=== PATIENT | female | born 1935 | race Caucasian/White ===

== ENCOUNTER 2018-06-19 09:02 | Emergency (ER) | payer OTHER ==
--- NOTE | 2018-06-19 09:31 | PDOC ---
History of Present Illness - General Chief Complaint: Injury Stated Complaint: FALL Time Seen by Provider: 06/19/18 09:31 History Source: Patient Exam Limitations: No Limitations - History of Present Illness Initial Comments: 06/19/18 09:36 Ms Casper is a coy 89 yo F resident of [address] [place] [address], who presents emergency department via EMS after a fall. Patient has a history of advanced dementia and is largely unable to provide historical information. Call placed to group home facility 06/19/18 09:37 06/19/18 09:45 Per Nurse Korin, pt exited her room with a tissue on her head stating that she did something Staff notice blood and went to her room to investigate Staff member surmises that the patient may have hit her head on the edge of her night table Unable to comment on LOC Pt is demented, not necessarily amnestic Past History - Past Medical History Allergies/Adverse Reactions: Allergies Allergy/AdvReac Type Severity Reaction Status Date / Time No Known Allergies Allergy Verified 06/19/18 09:23 Home Medications: Ambulatory Orders Atorvastatin Ca [Lipitor] 20 mg PO HS 06/19/18 Chlorthalidone 30 mg PO DAILY 06/19/18 Ergocalciferol [Vitamin D2] 50,000 unit PO Q7D@1000 06/19/18 Levothyroxine Sodium [Levo-T] 50 mcg PO DAILY 06/19/18 Mirtazapine 22.5 mg PO BID 06/19/18 Potassium Chloride [Potassium Chloride Oral Liquid] 20 meq PO ONCE 06/19/18 Sertraline HCl 100 mg PO DAILY 06/19/18 COPD: No Dementia: Yes Hypercholesterolemia: Yes Psychiatric Problems: Yes (DEPRESSION) Thyroid Disease: Yes (HYPO) - Suicide/Smoking/Psychosocial Hx Smoking History: Never smoked Review of Systems - Review of Systems Able to Perform ROS?: Yes (ROS limited by dementia) Constitutional: No: Fever, Loss of Appetite HEENTM: No: Blurred Vision, Nose Bleeding Respiratory: No: Cough, Shortness of Breath, Wheezing Cardiac (ROS): No: Chest Pain ABD/GI: No: Diarrhea, Vomiting, Abdominal cramping : No: Burning, Flank Pain Musculoskeletal: Yes: Joint Stiffness. No: Back Pain, Neck Pain Neurological: No: Headache, Numbness, Weakness All Other Systems: Reviewed and Negative *Physical Exam - Vital Signs Last Vital Signs Temp Pulse Resp BP Pulse Ox 97.9 F 67 16 136/89 97 06/19/18 09:19 06/19/18 09:19 06/19/18 09:19 06/19/18 09:19 06/19/18 09:19 - Physical Exam General Appearance: Yes: Nourished, Appropriately Dressed. No: Apparent Distress, Disheveled, Cachetic Neck: positive: Supple. negative: Tender, Rigidity, Tender lateral, Tender midline Respiratory/Chest: positive: Lungs Clear, Normal Breath Sounds. negative: Respiratory Distress, Accessory Muscle Use Cardiovascular: positive: Regular Rhythm, Regular Rate, S1, S2 Gastrointestinal/Abdominal: positive: Soft, Protuberent. negative: Tender, Decreased BS, Guarding, Rebound Musculoskeletal: positive: Normal Inspection, Other (Pt ranges limbs with no difficulty, some stiffness/pain with ). negative: Decreased Range of Motion Extremity: positive: Normal Capillary Refill, Normal Inspection, Normal Range of Motion, Pelvis Stable. negative: Cyanosis, Pedal Edema Integumentary: positive: Other (Small abrasion noted on the left parietal region , no laceration, no hematoma, no active bleeding) Neurologic: positive: log inspector II-XII NML intact, Alert, Normal Mood/Affect, Normal Response, Motor Strength 5/5. negative: Fully Oriented ED Treatment Course - LABORATORY CBC & Chemistry Diagram: 06/19/18 09:55 06/19/18 09:55 Medical Decision Making - Medical Decision Making 06/19/18 09:41 89 yo F s/p fall Will do: basic labs EKG CT head and c spine No need for extremity images as demonstrates no deformity Will give tylenol for aches and pains Boostrix administered 06/19/18 10:15 EKG: Left bundle branch block, rate of 65 bpm, no prior EKG for comparison 06/19/18 11:20 Laboratory Tests 06/19/18 06/19/18 09:55 09:55 WBC 7.8 Hgb 12.6 Hct 37.2 Plt Count 261 Neutrophils % 72.9 Lymphocytes % 17.6 Sodium 144 Potassium 3.5 Chloride 104 Carbon Dioxide 29 BUN 17 Creatinine 0.9 Random Glucose 94 Creatine Kinase 51 Troponin I < 0.02 06/19/18 11:21 CT demonstrate no ICH, no mass, no mass effect (+) dilated ventricles No cervical spine fracture Will discharge to home Copies of all labs and CT sent back to facility Clinical impression: Fall, initial presentation Head trauma, initial presentation Scalp abrasion, initial presentation *DC/Admit/Observation/Transfer Diagnosis at time of Disposition: Fall Qualifiers: Encounter type: initial encounter Qualified Code(s): W19.XXXA - Unspecified fall, initial encounter Head trauma Qualifiers: Encounter type: initial encounter Qualified Code(s): S09.90XA - Unspecified injury of head, initial encounter - Discharge Dispostion Disposition: HOME Condition at time of disposition: Stable Decision to Admit order: No - Referrals Referrals: Angie Peraza MD [Primary Care Provider] - - Patient Instructions Printed Discharge Instructions: DI for Closed Head Injury Additional Instructions: Please review patient's labs and CT results Please monitor for any concerning changes Return to the ER for any other concerns or complaints - Post Discharge Activity
[2018-06-19] MEDS ORDERED: ACETAMINOPHEN 325 MG TABLET (FP) PO ONE (09:36)
[2018-06-19 09:41] VITALS: BP 136/89; PULSE 67; TEMP 97.9; BMI 28.2
[2018-06-19] MEDS ORDERED: ACETAMINOPHEN 325 MG TABLET (FP) ONE (09:49)
[2018-06-19] MEDS ORDERED: DIPHTH,PERTUSS(ACELL),TET 0.5 ML DISP.SYRIN IM ONE (09:49)
[2018-06-19 10:07] LABS: BASO % 0.6 % (0-2.0); EOS % 1.4 % (0-4.5); HEMATOCRIT 37.2 % (32.4-45.2); HEMOGLOBIN 12.6 GM/dL (10.7-15.3); LYMPH % 17.6 % (8-40); MEAN CELL VOLUME 91.2 fl (80-96); MEAN PLT VOLUME 7.4 fl (7.5-11.1); MONO % 7.5 % (3.8-10.2); NEUT % 72.9 % (42.8-82.8); PLATELET COUNT 261 K/MM3 (134-434); RBC 4.08 M/mm3 (3.60-5.2); RDW 13.5 % (11.6-15.6); WHITE BLOOD COUNT 7.8 K/mm3 (4.0-10.0)
[2018-06-19 10:41] LABS: ALBUMIN 3.7 g/dl (3.4-5.0); ANION GAP 11 (8-16); BILIRUBIN,TOTAL 0.4 mg/dL (0.2-1.0); BLOOD UREA NITROGEN 17 mg/dL (7-18); CALCIUM 8.7 mg/dL (8.5-10.1); CHLORIDE 104 mmol/L (98-107); CO2 29 mmol/L (21-32); CREATININE 0.9 mg/dL (0.55-1.02); GLUCOSE,RANDOM 94 mg/dL (74-106); POTASSIUM 3.5 mmol/L (3.5-5.1); SGOT/AST 20 U/L (15-37); SGPT/ALT 21 U/L (12-78); SODIUM 144 mmol/L (136-145); TOT PROT 7.1 g/dl (6.4-8.2)
[2018-06-19 10:43] LABS: ALK PHOS 97 U/L (45-117)
--- NOTE | 2018-06-21 08:35 | EKG ---
Test Reason : Blood Pressure : / mmHG Vent. Rate : 065 BPM Atrial Rate : 065 BPM P-R Int : 164 ms QRS Dur : 140 ms QT Int : 484 ms P-R-T Axes : 030 -28 091 degrees QTc Int : 503 ms NORMAL SINUS RHYTHM POSSIBLE LEFT ATRIAL ENLARGEMENT LEFT BUNDLE BRANCH BLOCK POOR R WAVE PROGRESSION ABNORMAL ECG NO PREVIOUS ECGS AVAILABLE Confirmed by NAA GORE MD ([id number]) on 06/21/2018 8:34:50 AM Referred By: Confirmed By:NAA GORE MD
== END 2018-06-19 12:30 ==
LOC: EDBD 09:02 → JER 09:02
PROC: 3E0234Z Introduction of Serum, Toxoid and Vaccine into Muscle, Percutaneous Approach (ICD-10-PCS; principal; 2018-06-19)
DX: S09.90XA Unspecified injury of head, initial encounter (principal); S00.01XA Abrasion of scalp, initial encounter; W19.XXXA Unspecified fall, initial encounter; Y93.9 Activity, unspecified; Y92.099 Unspecified place in other non-institutional residence as the place of occurrence of the external cause; F03.90 Unspecified dementia, unspecified severity, without behavioral disturbance, psychotic disturbance, mood disturbance, and anxiety; E03.9 Hypothyroidism, unspecified; E78.00 Pure hypercholesterolemia, unspecified; F32.9 Major depressive disorder, single episode, unspecified; I44.7 Left bundle-branch block, unspecified
CPT/HCPCS: 36415; 70450-TC; 72125-TC; 80053; 82550; 84484; 85025; 90715; 93005; 93010; 99283-25

== ENCOUNTER 2022-11-12 00:40 | Inpatient (IN) | payer OTHER ==
[2022-11-12 02:02] LABS: BASO % 0.5 % (0-2.0); EOS % 3.2 % (0-4.5); HEMATOCRIT 37.5 % (32.4-45.2); HEMOGLOBIN 12.2 GM/dL (10.7-15.3); LYMPH % 22.5 % (8-40); MCHC 32.6 g/dl (32.0-36.0); MEAN CELL VOLUME 94.9 fl (80-96); MEAN PLT VOLUME 7.4 fl (7.5-11.1); MONO % 9.8 % (3.8-10.2); PLATELET COUNT 202 10^3/uL (134-434); RBC 3.95 M/mm3 (3.60-5.2); RDW 13.4 % (11.6-15.6)
[2022-11-12 02:12] LABS: INR 1.03 (0.83-1.09); PROTHROMBIN TIME (PATIENT) 11.9 SEC (9.7-13.0)
[2022-11-12 02:15] LABS: ACTIVATED PTT 29.6 SECONDS (25.2-36.5)
[2022-11-12 02:21] LABS: CALCIUM 8.6 mg/dL (8.5-10.1)
[2022-11-12 02:22] LABS: ALBUMIN 3.2 g/dl (3.4-5.0); BLOOD UREA NITROGEN 22.6 mg/dL (7-18)
[2022-11-12 02:24] LABS: CREATININE 0.6 mg/dL (0.55-1.3)
[2022-11-12 02:26] LABS: BILIRUBIN,TOTAL 0.3 mg/dL (0.2-1); TOT PROT 6.6 g/dl (6.4-8.2)
[2022-11-12 02:30] LABS: N-TERMINAL BNP 481.8 pg/ml (5-450)
[2022-11-12 04:09] LABS: EPI CELLS 1 /uL (0-25.1); HYALINE CASTS 2 /uL (0-3.1); PH,URINE 7.5 (5.0-8.0); URINE APPEARANCE CLEAR; URINE BACTERIA 4195 /uL (0-1359); URINE BILIRUBIN NEGATIVE (NEGATIVE); URINE COLOR YELLOW; URINE GLUCOSE (UA) NEGATIVE (NEGATIVE); URINE KETONE NEGATIVE (NEGATIVE); URINE LEUK ESTERASE 2+ (NEGATIVE); URINE NITRITE POSITIVE (NEGATIVE); URINE PROTEIN NEGATIVE (NEGATIVE); URINE RBC 8 /uL (0-23.9); URINE UROBILINOGEN 0.2 mg/dL (0.2-1.0); URINE WBC 637 /uL (0-25.8)
[2022-11-12] MEDS ORDERED: CEFTRIAXONE 1 GM in DEXTROSE 5%-WATER - 100 ML IVPB ONE (04:20)
[2022-11-12] MEDS ORDERED: CEFTRIAXONE 1 GM/50 ML BAG ONE ×2 (04:25→20:54)
[2022-11-12] MEDS ORDERED: DOCUSATE SODIUM 100 MG CAPSULE (FP) PO PRN (05:33)
[2022-11-12] MEDS: PANTOPRAZOLE 40 MG TABLET PO SCH ×2 (05:57→09:35)
[2022-11-12] MEDS: DEXTROSE 5%-WATER - 1,000 ML IV SCH (05:57)
[2022-11-12] MEDS: LOSARTAN 50MG/HCTZ 12.5MG 1 TAB PO SCH ×2 (06:44→22:36)
[2022-11-12] MEDS ORDERED: PANTOPRAZOLE 40 MG TABLET PO ONE (09:29)
[2022-11-12] MEDS ORDERED: LEVOTHYROXINE NA 50 MCG TABLET (FP) ONE (09:30)
[2022-11-12] MEDS ORDERED: SERTRALINE HCL 50 MG TABLET (FP) ONE (09:30)
[2022-11-12] MEDS: SERTRALINE HCL 50 MG TABLET (FP) PO SCH (09:35)
[2022-11-12] MEDS: LEVOTHYROXINE NA 50 MCG TABLET (FP) PO SCH (09:35)
[2022-11-12] MEDS: ENOXAPARIN NA (PORCINE) 40 MG/0.4 ML DISP.SYRIN SQ SCH (11:49)
[2022-11-12] MEDS: CEFTRIAXONE 1 GM in DEXTROSE 5%-WATER - 50 ML IVPB SCH (20:59)
[2022-11-12] MEDS ORDERED: ATORVASTATIN CA 20 MG TABLET (FP) ONE (22:30)
[2022-11-12] MEDS ORDERED: MIRTAZAPINE 15 MG TABLET (FP) ONE (22:30)
[2022-11-12] MEDS: MIRTAZAPINE 15 MG TABLET (FP) PO SCH (22:36)
[2022-11-12] MEDS: ATORVASTATIN CA 20 MG TABLET (FP) PO SCH (22:36)
[2022-11-13] MEDS: DEXTROSE 5%-WATER - 1,000 ML IV SCH (06:38)
[2022-11-13] MEDS: LEVOTHYROXINE NA 50 MCG TABLET (FP) PO SCH (06:42)
[2022-11-13] MEDS ORDERED: amLODIPine BESYLATE 10 MG TABLET (FP) PO ONE (07:00)
[2022-11-13] MEDS ORDERED: amLODIPine BESYLATE 10 MG TABLET (FP) PO SCH (10:00)
[2022-11-13] MEDS: CEFTRIAXONE 1 GM in DEXTROSE 5%-WATER - 50 ML IVPB SCH (10:55)
[2022-11-13] MEDS: PANTOPRAZOLE 40 MG TABLET PO SCH (11:17)
[2022-11-13] MEDS: LOSARTAN 50MG/HCTZ 12.5MG 1 TAB PO SCH ×2 (11:17→21:53)
[2022-11-13] MEDS: ENOXAPARIN NA (PORCINE) 40 MG/0.4 ML DISP.SYRIN SQ SCH (11:17)
[2022-11-13] MEDS: SERTRALINE HCL 50 MG TABLET (FP) PO SCH (11:17)
[2022-11-13 14:12] LABS: BASO % 0.4 % (0-2.0); EOS % 3.2 % (0-4.5); HEMOGLOBIN 13.1 GM/dL (10.7-15.3); LYMPH % 22.1 % (8-40); MCH 30.9 pg (25.7-33.7); MCHC 32.8 g/dl (32.0-36.0); MEAN PLT VOLUME 7.3 fl (7.5-11.1); MONO % 7.2 % (3.8-10.2); NEUT % 67.1 % (42.8-82.8); PLATELET COUNT 255 10^3/uL (134-434); RBC 4.25 M/mm3 (3.60-5.2); RDW 13.5 % (11.6-15.6); WHITE BLOOD COUNT 7.1 K/mm3 (4.0-10.0)
[2022-11-13 14:32] LABS: BLOOD UREA NITROGEN 12.1 mg/dL (7-18)
[2022-11-13 14:35] LABS: CREATININE 0.7 mg/dL (0.55-1.3)
[2022-11-13] MEDS: ATORVASTATIN CA 20 MG TABLET (FP) PO SCH (21:53)
[2022-11-13] MEDS: MIRTAZAPINE 15 MG TABLET (FP) PO SCH (21:53)
[2022-11-14 07:42] LABS: BASO % 0.7 % (0-2.0); HEMATOCRIT 42.2 % (32.4-45.2); HEMOGLOBIN 13.9 GM/dL (10.7-15.3); LYMPH % 18.4 % (8-40); MCH 31.1 pg (25.7-33.7); MCHC 32.9 g/dl (32.0-36.0); MEAN CELL VOLUME 94.6 fl (80-96); MEAN PLT VOLUME 8.4 fl (7.5-11.1); NEUT % 69.9 % (42.8-82.8); PLATELET COUNT 212 10^3/uL (134-434); RBC 4.46 M/mm3 (3.60-5.2); RDW 13.6 % (11.6-15.6); WHITE BLOOD COUNT 7.5 K/mm3 (4.0-10.0)
[2022-11-14] MEDS: LEVOTHYROXINE NA 50 MCG TABLET (FP) PO SCH (07:46)
[2022-11-14 08:00] LABS: CALCIUM 9.2 mg/dL (8.5-10.1)
[2022-11-14 08:01] LABS: BLOOD UREA NITROGEN 11.6 mg/dL (7-18)
[2022-11-14 08:04] LABS: CREATININE 0.6 mg/dL (0.55-1.3)
[2022-11-14] MEDS ORDERED: cefTRIAXone SODIUM 1 GM VIAL ONE (10:21)
[2022-11-14] MEDS: ENOXAPARIN NA (PORCINE) 40 MG/0.4 ML DISP.SYRIN SQ SCH (11:12)
[2022-11-14] MEDS: SERTRALINE HCL 50 MG TABLET (FP) PO SCH (11:12)
[2022-11-14] MEDS: CEFTRIAXONE 1 GM in DEXTROSE 5%-WATER - 50 ML IVPB SCH (11:12)
[2022-11-14] MEDS: amLODIPine BESYLATE 10 MG TABLET (FP) PO SCH (11:13)
[2022-11-14] MEDS: DEXTROSE 5%-WATER - 1,000 ML IV SCH (11:13)
[2022-11-14] MEDS: LOSARTAN 50MG/HCTZ 12.5MG 1 TAB PO SCH ×2 (11:13→22:00)
[2022-11-14] MEDS: PANTOPRAZOLE 40 MG TABLET PO SCH (11:13)
[2022-11-14] MEDS: ERTAPENEM SODIUM 1 GM in SODIUM CHLORIDE 50 ML IVPB SCH (15:56)
[2022-11-14] MEDS: MIRTAZAPINE 15 MG TABLET (FP) PO SCH (22:00)
[2022-11-14] MEDS: ATORVASTATIN CA 20 MG TABLET (FP) PO SCH (22:26)
[2022-11-15] MEDS: LEVOTHYROXINE NA 50 MCG TABLET (FP) PO SCH (06:26)
[2022-11-15] MEDS: LOSARTAN 50MG/HCTZ 12.5MG 1 TAB PO SCH ×2 (10:14→23:03)
[2022-11-15] MEDS: SERTRALINE HCL 50 MG TABLET (FP) PO SCH (10:14)
[2022-11-15] MEDS: ENOXAPARIN NA (PORCINE) 40 MG/0.4 ML DISP.SYRIN SQ SCH (10:14)
[2022-11-15] MEDS: PANTOPRAZOLE 40 MG TABLET PO SCH (10:15)
[2022-11-15] MEDS: amLODIPine BESYLATE 10 MG TABLET (FP) PO SCH (10:15)
[2022-11-15] MEDS: DEXTROSE 5%-WATER - 1,000 ML IV SCH ×2 (10:15→23:03)
[2022-11-15] MEDS: ERTAPENEM SODIUM 1 GM in SODIUM CHLORIDE 50 ML IVPB SCH (10:16)
[2022-11-15] MEDS: ATORVASTATIN CA 20 MG TABLET (FP) PO SCH (23:03)
[2022-11-15] MEDS: MIRTAZAPINE 15 MG TABLET (FP) PO SCH (23:05)
[2022-11-16] MEDS: DEXTROSE 5%-WATER - 1,000 ML IV SCH (05:48)
[2022-11-16] MEDS: LEVOTHYROXINE NA 50 MCG TABLET (FP) PO SCH (05:59)
[2022-11-16 09:29] LABS: BASO % 0.5 % (0-2.0); EOS % 1.9 % (0-4.5); HEMATOCRIT 36.3 % (32.4-45.2); HEMOGLOBIN 12.3 GM/dL (10.7-15.3); LYMPH % 21.5 % (8-40); MCH 31.3 pg (25.7-33.7); MCHC 33.8 g/dl (32.0-36.0); MEAN CELL VOLUME 92.5 fl (80-96); MONO % 10.5 % (3.8-10.2); NEUT % 65.6 % (42.8-82.8); PLATELET COUNT 276 10^3/uL (134-434); RBC 3.92 M/mm3 (3.60-5.2); WHITE BLOOD COUNT 8.4 K/mm3 (4.0-10.0)
[2022-11-16 09:54] LABS: CREATININE 1.1 mg/dL (0.55-1.3)
[2022-11-16 09:55] LABS: BLOOD UREA NITROGEN 19.6 mg/dL (7-18)
[2022-11-16] MEDS ORDERED: DEXTROSE 5%-WATER - 1,000 ML IV SCH (10:03)
[2022-11-16] MEDS: amLODIPine BESYLATE 10 MG TABLET (FP) PO SCH ×2 (11:00→12:17)
[2022-11-16] MEDS: SERTRALINE HCL 50 MG TABLET (FP) PO SCH (11:00)
[2022-11-16] MEDS: ENOXAPARIN NA (PORCINE) 40 MG/0.4 ML DISP.SYRIN SQ SCH (11:00)
[2022-11-16] MEDS: PANTOPRAZOLE 40 MG TABLET PO SCH (11:00)
[2022-11-16] MEDS: ERTAPENEM SODIUM 1 GM in SODIUM CHLORIDE 50 ML IVPB SCH (11:00)
[2022-11-16] MEDS: LOSARTAN 50MG/HCTZ 12.5MG 1 TAB PO SCH (12:19)
[2022-11-16] MEDS: D5-1/2NS+20 MEQ KCL - 20 MEQ/1,000 ML INFUS.BAG IV SCH (12:51)
[2022-11-16] MEDS: KCL 10 MEQ IVPB 10 MEQ/100 ML INFUS.BAG IVPB SCH ×3 (15:20→20:28)
[2022-11-16] MEDS ORDERED: levETIRAcetam 500 MG/5 ML INJECTION VIAL IVPB ONE (17:58)
[2022-11-16] MEDS: ATORVASTATIN CA 20 MG TABLET (FP) PO SCH (21:06)
[2022-11-16] MEDS: MIRTAZAPINE 15 MG TABLET (FP) PO SCH (21:11)
[2022-11-16] MEDS: levETIRAcetam 500 MG/5 ML INJECTION VIAL IVPB SCH (22:02)
[2022-11-17] MEDS: LEVOTHYROXINE NA 50 MCG TABLET (FP) PO SCH (06:20)
[2022-11-17 11:39] LABS: BASO % 0.5 % (0-2.0); EOS % 3.8 % (0-4.5); HEMATOCRIT 34.7 % (32.4-45.2); HEMOGLOBIN 11.9 GM/dL (10.7-15.3); LYMPH % 18.5 % (8-40); MCH 31.7 pg (25.7-33.7); MCHC 34.2 g/dl (32.0-36.0); MEAN CELL VOLUME 92.5 fl (80-96); MEAN PLT VOLUME 7.5 fl (7.5-11.1); MONO % 11.2 % (3.8-10.2); PLATELET COUNT 234 10^3/uL (134-434); RBC 3.76 M/mm3 (3.60-5.2); WHITE BLOOD COUNT 6.5 K/mm3 (4.0-10.0)
[2022-11-17] MEDS: amLODIPine BESYLATE 10 MG TABLET (FP) PO SCH (11:53)
[2022-11-17] MEDS: PANTOPRAZOLE 40 MG TABLET PO SCH (11:53)
[2022-11-17] MEDS: SERTRALINE HCL 50 MG TABLET (FP) PO SCH (11:54)
[2022-11-17] MEDS: ENOXAPARIN NA (PORCINE) 40 MG/0.4 ML DISP.SYRIN SQ SCH (11:54)
[2022-11-17] MEDS: levETIRAcetam 500 MG/5 ML INJECTION VIAL IVPB SCH (11:58)
[2022-11-17 12:09] LABS: CALCIUM 8.8 mg/dL (8.5-10.1)
[2022-11-17 12:13] LABS: CREATININE 0.8 mg/dL (0.55-1.3)
[2022-11-17] MEDS: D5-1/2NS+20 MEQ KCL - 20 MEQ/1,000 ML INFUS.BAG IV SCH (18:20)
[2022-11-17] MEDS: ERTAPENEM SODIUM 1 GM in SODIUM CHLORIDE 50 ML IVPB SCH (18:21)
[2022-11-17] MEDS: ATORVASTATIN CA 20 MG TABLET (FP) PO SCH (22:05)
[2022-11-17] MEDS: MIRTAZAPINE 15 MG TABLET (FP) PO SCH (22:05)
[2022-11-18] MEDS: LEVOTHYROXINE NA 50 MCG TABLET (FP) PO SCH (06:01)
[2022-11-18 09:33] LABS: CALCIUM 8.8 mg/dL (8.5-10.1)
[2022-11-18 09:34] LABS: BLOOD UREA NITROGEN 18.6 mg/dL (7-18)
[2022-11-18 09:37] LABS: CREATININE 0.7 mg/dL (0.55-1.3)
[2022-11-18] MEDS: levETIRAcetam 500 MG TABLET (FP) PO SCH (09:50)
[2022-11-18] MEDS: PANTOPRAZOLE 40 MG TABLET PO SCH (09:50)
[2022-11-18] MEDS: SERTRALINE HCL 50 MG TABLET (FP) PO SCH (09:50)
[2022-11-18] MEDS: amLODIPine BESYLATE 10 MG TABLET (FP) PO SCH (09:50)
[2022-11-18] MEDS: ENOXAPARIN NA (PORCINE) 40 MG/0.4 ML DISP.SYRIN SQ SCH (09:50)
[2022-11-18] MEDS: ERTAPENEM SODIUM 1 GM in SODIUM CHLORIDE 50 ML IVPB SCH (09:51)
[2022-11-18] MEDS: D5-1/2NS+20 MEQ KCL - 20 MEQ/1,000 ML INFUS.BAG IV SCH ×2 (09:52→21:57)
[2022-11-18] MEDS ORDERED: ERGOCALCIFEROL (VIT D2) 50,000 UNIT (1.25 MG) CAPSULE PO SCH (10:00)
[2022-11-18 18:38] VITALS: BMI 18.5
[2022-11-18] MEDS: MIRTAZAPINE 15 MG TABLET (FP) PO SCH (21:56)
[2022-11-18] MEDS: ATORVASTATIN CA 20 MG TABLET (FP) PO SCH (21:57)
[2022-11-19] MEDS: LEVOTHYROXINE NA 50 MCG TABLET (FP) PO SCH (06:00)
[2022-11-19] MEDS: SERTRALINE HCL 50 MG TABLET (FP) PO SCH (09:54)
[2022-11-19] MEDS: ENOXAPARIN NA (PORCINE) 40 MG/0.4 ML DISP.SYRIN SQ SCH (09:55)
[2022-11-19] MEDS: levETIRAcetam 500 MG TABLET (FP) PO SCH (09:55)
[2022-11-19] MEDS: amLODIPine BESYLATE 10 MG TABLET (FP) PO SCH (09:55)
[2022-11-19] MEDS: PANTOPRAZOLE 40 MG TABLET PO SCH (09:55)
[2022-11-19] MEDS: D5-1/2NS+20 MEQ KCL - 20 MEQ/1,000 ML INFUS.BAG IV SCH ×2 (12:09→17:55)
[2022-11-19] MEDS: MIRTAZAPINE 15 MG TABLET (FP) PO SCH (21:39)
[2022-11-19] MEDS: ATORVASTATIN CA 20 MG TABLET (FP) PO SCH (21:39)
[2022-11-20] MEDS: LEVOTHYROXINE NA 50 MCG TABLET (FP) PO SCH (06:04)
[2022-11-20 10:02] LABS: BASO % 0.5 % (0-2.0); EOS % 3.8 % (0-4.5); HEMATOCRIT 34.6 % (32.4-45.2); HEMOGLOBIN 11.6 GM/dL (10.7-15.3); LYMPH % 17.1 % (8-40); MCH 31.4 pg (25.7-33.7); MCHC 33.5 g/dl (32.0-36.0); MEAN CELL VOLUME 93.6 fl (80-96); MEAN PLT VOLUME 8.1 fl (7.5-11.1); MONO % 9.4 % (3.8-10.2); NEUT % 69.2 % (42.8-82.8); PLATELET COUNT 252 10^3/uL (134-434); RBC 3.69 M/mm3 (3.60-5.2); RDW 13.1 % (11.6-15.6); WHITE BLOOD COUNT 8.6 K/mm3 (4.0-10.0)
[2022-11-20 10:18] LABS: CALCIUM 8.6 mg/dL (8.5-10.1)
[2022-11-20 10:20] LABS: BLOOD UREA NITROGEN 19.7 mg/dL (7-18)
[2022-11-20 10:23] LABS: CREATININE 0.6 mg/dL (0.55-1.3)
[2022-11-20 10:44] VITALS: RESP 18
[2022-11-20] MEDS: ENOXAPARIN NA (PORCINE) 40 MG/0.4 ML DISP.SYRIN SQ SCH (10:44)
[2022-11-20] MEDS: PANTOPRAZOLE 40 MG TABLET PO SCH (10:45)
[2022-11-20] MEDS: amLODIPine BESYLATE 10 MG TABLET (FP) PO SCH (10:45)
[2022-11-20] MEDS: levETIRAcetam 500 MG TABLET (FP) PO SCH (10:45)
[2022-11-20] MEDS: SERTRALINE HCL 50 MG TABLET (FP) PO SCH (10:45)
[2022-11-20] MEDS: D5-1/2NS+20 MEQ KCL - 20 MEQ/1,000 ML INFUS.BAG IV SCH ×2 (10:46→16:19)
[2022-11-20] MEDS: ATORVASTATIN CA 20 MG TABLET (FP) PO SCH (21:32)
[2022-11-20] MEDS: MIRTAZAPINE 15 MG TABLET (FP) PO SCH (21:32)
[2022-11-21 05:38] VITALS: BP 141/63; PULSE 63; TEMP 96
[2022-11-21] MEDS: LEVOTHYROXINE NA 50 MCG TABLET (FP) PO SCH (06:00)
[2022-11-21] MEDS: PANTOPRAZOLE 40 MG TABLET PO SCH (10:33)
[2022-11-21] MEDS: amLODIPine BESYLATE 10 MG TABLET (FP) PO SCH (10:33)
[2022-11-21] MEDS: ENOXAPARIN NA (PORCINE) 40 MG/0.4 ML DISP.SYRIN SQ SCH (10:33)
[2022-11-21] MEDS: SERTRALINE HCL 50 MG TABLET (FP) PO SCH (10:33)
[2022-11-21] MEDS: levETIRAcetam 500 MG TABLET (FP) PO SCH (10:33)
[2022-11-21] MEDS: D5-1/2NS+20 MEQ KCL - 20 MEQ/1,000 ML INFUS.BAG IV SCH (10:36)
== END 2022-11-21 14:36 | disposition home or self-care (01) | DRG 689 ==
LOC: JER 00:40 → JERBED 01:30 → OBSVTOIN 05:30 → J4W 11-13 03:21 → J7W 11-15 18:36
PROVIDERS: ADMIT Internal Medicine; ATTEND Internal Medicine
DX: N39.0 Urinary tract infection, site not specified (principal); R53.2 Functional quadriplegia; E87.0 Hyperosmolality and hypernatremia; Z16.12 Extended spectrum beta lactamase (ESBL) resistance; F03.90 Unspecified dementia, unspecified severity, without behavioral disturbance, psychotic disturbance, mood disturbance, and anxiety; E03.9 Hypothyroidism, unspecified; I10 Essential (primary) hypertension; E78.5 Hyperlipidemia, unspecified; I44.7 Left bundle-branch block, unspecified; G40.909 Epilepsy, unspecified, not intractable, without status epilepticus; B96.20 Unspecified Escherichia coli [E. coli] as the cause of diseases classified elsewhere; F41.8 Other specified anxiety disorders; E87.6 Hypokalemia; K59.00 Constipation, unspecified
CPT/HCPCS: 0241U-QW; 36415; 70450-TC; 70486-TC; 71045-TC-FY; 72125-TC; 72170-TC-FY; 80048; 80053; 81003; 82550; 82962; 83880; 84484; 85025; 85610; 85730; 86850; 86900; 86901; 87040; 87086; 87186; 93005; 93010; 93306-TC; 97162-GP; 99285-25; C9803-CS; G0378; U0003; U0005

== ENCOUNTER 2022-12-07 07:28 | Emergency (ER) | payer OTHER ==
[2022-12-07 07:51] VITALS: BMI 28.2
[2022-12-07 10:01] LABS: BASO % 0.4 % (0-2.0); EOS % 0.8 % (0-4.5); HEMATOCRIT 35.4 % (32.4-45.2); LYMPH % 13.5 % (8-40); MCH 31.3 pg (25.7-33.7); MCHC 33.8 g/dl (32.0-36.0); MEAN CELL VOLUME 92.5 fl (80-96); MEAN PLT VOLUME 7.8 fl (7.5-11.1); MONO % 5.4 % (3.8-10.2); NEUT % 79.9 % (42.8-82.8); PLATELET COUNT 240 10^3/uL (134-434); RBC 3.82 M/mm3 (3.60-5.2); RDW 13.2 % (11.6-15.6); WHITE BLOOD COUNT 7.5 K/mm3 (4.0-10.0)
[2022-12-07 10:15] LABS: ALBUMIN 3.3 g/dl (3.4-5.0); BLOOD UREA NITROGEN 15.5 mg/dL (7-18); CALCIUM 8.9 mg/dL (8.5-10.1)
[2022-12-07 10:18] LABS: CREATININE 0.6 mg/dL (0.55-1.3)
[2022-12-07 10:20] LABS: BILIRUBIN,TOTAL 0.3 mg/dL (0.2-1); TOT PROT 6.9 g/dl (6.4-8.2)
[2022-12-07 12:01] LABS: PH,URINE 6.5 (5.0-8.0); URINE APPEARANCE CLOUDY; URINE BILIRUBIN NEGATIVE (NEGATIVE); URINE COLOR YELLOW; URINE GLUCOSE (UA) NEGATIVE (NEGATIVE); URINE KETONE NEGATIVE (NEGATIVE); URINE LEUK ESTERASE NEGATIVE (NEGATIVE); URINE NITRITE NEGATIVE (NEGATIVE); URINE PROTEIN NEGATIVE (NEGATIVE); URINE UROBILINOGEN 0.2 mg/dL (0.2-1.0)
[2022-12-07 12:57] VITALS: BP 142/78; PULSE 60; RESP 16; TEMP 98.3
== END 2022-12-07 18:08 ==
LOC: JER 07:28
DX: M54.50 Low back pain, unspecified (principal)
CPT/HCPCS: 0241U-QW; 36415; 71045-TC-FY; 80053; 81003; 84484; 85025; 87086; 93005; 93010; 99285-25